=== PATIENT | female | born 1970 | race Two or more races ===

== ENCOUNTER 2024-08-21 17:48 | Emergency (ER) | payer SELFPAY ==
[~2024-08-21] VITALS: Ht 157.5 cm; Wt 64.5 kg
--- NOTE | 2024-08-21 18:18 | ED.PDOC ---
Back pain HPI HPI Comments This is a 53-year-old male patient chief complaint status post fall ground level while at work today around 3:00 p.m.. 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 Patient is complaining of left forearm, left rib cage, left knee, left thigh, and left-sided thoracic back pain. Describes the pain sharp and shooting nonradiating type pain 7/10 on pain scale. Patient states she follow up with occupational health was given a pain shot, unsure on what it was. Patient states she did walk to her car after injury very gingerly with a limping gait. The states did not hit her head denies LOC or neck pain. She denies weakness, numbness, or any other known injury. Time Seen by MD: 18:11 Reviewed Notes: Nurses Notes, Medications, Allergies Allergies: Coded Allergies: Hydrochlorothiazide (Verified Allergy, Unknown, 08/21/24) Home Meds Active Scripts Tizanidine Hydrochloride (Zanaflex) 4 Mg Tab, 1 TAB PO QPM PRN for 4 Days, #4 TAB Prov:COSME ABBOTT [facility] 08/21/24 Ibuprofen Micronized (Ibuprofen) 800 Mg Tab, 800 MG PO TID PRN for 5 Days, #15 TAB Prov:COSME ABBOTT [facility] 08/21/24 Information Source: Patient Past Medical History PAST MEDICAL HISTORY: Denies Surgical History: Denies all surgeries [employer]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 History Family History Family History: Reviewed,noncontributory to illness Social History Smoker: Non-Smoker Alcohol: Denies ETOH Use Drugs: Denies Drug Use Constitutional: denies: chills, diaphoresis, fatigue, fever, malaise, sweats, weakness, others EENTM: denies: blurred vision, double vision, ear bleeding, ear discharge, ear drainage, ear pain, ear ringing, eye pain, eye redness, hearing loss, mouth pain, mouth swelling, nasal discharge, nose bleeding, nose congestion, nose pain, photophobia, tearing, throat pain, throat swelling, voice changes, others Respiratory: reports: others (Left-sided rib cage pain and tenderness); denies: cough, hemoptysis, orthopnea, SOB at rest, shortness of breath, SOB with excertion, stridor, wheezing Cardiovascular: denies: chest pain, dizzy spells, diaphoresis, Dyspnea on exertion, edema, irregular heart beat, left arm pain, lightheadedness, palpitations, PND, syncope, others Gastrointestinal: denies: abdomen distended, abdominal pain, blood streaked bowels, constipated, diarrhea, dysphagia, difficulty swallowing, hematemesis, melena, nausea, poor appetite, poor fluid intake, rectal bleeding, rectal pain, vomiting, others Genitourinary: denies: abnormal vagina bleeding, burning, dyspareunia, dysuria, flank pain, frequency, hematuria, incontinence, pain, , vagina discharge, urgency, others Neurological: denies: dizziness, fainting, headache, left sided numbness, left sided weakness, numbness, paresthesia, pre-existing deficit, right sided numbness, right sided weakness, seizure, speech problems, tingling, tremors, weakness, others Musculoskeletal: reports: back pain (Thoracic back), joint swelling (Left knee), others (Pain left forearm) Physical Exam General Appearance: No Apparent Distress, Normal HEENT: Normal ENT Inspection, Pharynx Normal, TMs Normal Neck: Full Range of Motion, Non-Tender, Normal, Normal Inspection Respiratory: Chest Non-Tender, Lungs Clear, No Accessory Muscle Use, No Respiratory Distress, Normal Breath Sounds Cardiovascular: No Edema, No JVD, No Murmur, No Gallop, Normal Peripheral Pulses, Regular Rate/Rhythm Breast Exam: Deferred Gastrointestinal: No Organomegaly, Non Tender, No Pulsatile Mass, Normal Bowel Sounds, Soft Genitalia: Deferred Pelvic: Deferred Rectal: Deferred Extremities: No calf tenderness, Normal capillary refill, Normal inspection, Normal range of motion, Non-tender, No pedal edema Musculoskeletal : Location: Left Extremity Location: Back (Moderate tenderness and palpation over T1 through T12 left-sided paraspinal muscles with noted spasms without ecchymosis, abrasions, lesions or lacerations. No tenderness noted over T1 through T12 spine without crepitus or step-offs. Strength sensory and motion intact bilateral legs positive bilateral pedal pulses.), Forearm (Moderate tenderness palpated over dorsal aspect of forearm with noted superficial abrasion. Sensory strength and motion intact positive radial pulse.), Knee (Tenderness palpated over patella without ballottement trace edema. No noted abrasions, lacerations or lesions. Negative Tanesha's and drawer test. Strength sensory motion intact positive pedal pulse distal.), Other (Moderate tenderness on palpation with guarding over left-sided ribcage no noted flail chest, ecchymosis, lesions, lacerations or abrasions. No noted crepitus or bony prominence.) Apperance: Normal Neurologic: Alert, bi analyst II-XII nml as Tested, No Motor Deficits, Normal Affect, Normal Mood, No Sensory Deficits Cerebellar Function: Normal Reflexes: Normal Skin: Dry, Normal Color, Warm Lymphatic: No Adenopathy Was a procedure done? Was a procedure done?: No Back Pain Differential Dx Differential Diagnosis: Fracture, Musculoskeletal Pain X-Ray, Labs, Meds, VS Vital Signs Date Time Temp Pulse Resp B/P (MAP) Pulse Ox O2 Delivery O2 Flow Rate FiO2 08/21/24 19:00 99.1 94 16 160/93 (115) 98 99.1 08/21/24 19:00 94 16 98 Room Air 08/21/24 18:00 99.1 94 16 160/93 (115) 98 Current Medications Medications (Trade) Dose Ordered Sig/Naty Route Start Time Stop Time Status Last Admin Acetaminophen/ Hydrocodone Bitart ([place] 5/325MG Tab) 1 tab ONCE ONCE PO 08/21/24 18:30 08/21/24 18:31 DC 08/21/24 19:08 X-Ray, Labs, Meds, VS Comment Imaging: Left-sided ribcage x-ray shows no acute findings or osseous lesions Forearm shows no acute findings or osseous lesions Thoracic back spine shows no acute findings or osseous lesions Left knee shows no acute findings, 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 Patient reports improvement in pain and function requesting discharge at this time. Advised patient to follow up with her appointment with occupational heal on SaturdayAugust 25. We will script Zanaflex muscle relaxer and ibuprofen 800 mg advised no alcohol or driving while on muscle relaxer. Advised patient return to the ER for increasing pain, numbness, weakness, or any focal neuro deficits. Patient agrees with discharge plan of care. Time of 1ST Reevaluation: 19:25 Reevaluation 1ST: Improved Patient Education/Counseling: Diagnosis, Treatment, Prognosis, Need For Follow Up Family Education/Counseling: Diagnosis, Treatment, Prognosis, Need For Follow Up Departure 1 Departure Time of Disposition: 19:24 Impression: Primary Impression: Status post fall Additional Impressions: Contusion of left knee Qualified Codes: S80.02XA - Contusion of left knee, initial encounter Contusion of rib on left side Qualified Codes: S20.212A - Contusion of left front wall of thorax, initial encounter Contusion of left forearm Qualified Codes: S50.12XA - Contusion of left forearm, initial encounter Strain of muscle and tendon of back wall of thorax, initial encounter Disposition: HOME / SELF CARE / HOMELESS Condition: Stable e-Prescriptions Tizanidine Hydrochloride (Zanaflex) 4 Mg Tab 1 TAB PO QPM PRN for 4 Days, #4 TAB Prov: COSME ABBOTT 08/21/24 Ibuprofen Micronized (Ibuprofen) 800 Mg Tab 800 MG PO TID PRN for 5 Days, #15 TAB Prov: COSME ABBOTT 08/21/24 Discharged With: Self Critical Care Note Critical Care Time?: No Stability Stability form required: No COSME ABBOTT Aug 21, 2024 18:18
[2024-08-21 19:00] VITALS: BP 160/93; PULSE 94; RESP 16; TEMP 99.1; O2SAT 98
--- NOTE | 2024-08-21 19:02 | DVH ---
CLINICAL INDICATION: s/p fall pain and swelling TECHNIQUE: 3 radiographic views of the left knee were obtained. Comparison: None FINDINGS/IMPRESSION: Bifid patella versus fracture of the lower pole of the left patella. A lateral view was not obtained.
--- NOTE | 2024-08-21 19:07 | DVH ---
CLINICAL INDICATION: s/p fall pain TECHNIQUE: 5 radiographic views of the left were obtained. Comparison: None FINDINGS/IMPRESSION: There is no evidence of acute fracture or dislocation. There is no pneumothorax or pleural effusions. The visualized joint space is well maintained. The alignment is anatomical. There is no radiopaque foreign body.
[2024-08-21] MEDS: HYDROcodone-ACET 5/325MG TAB PO ONE (19:08)
--- NOTE | 2024-08-21 19:13 | DVH ---
CLINICAL INDICATION: s/p fall pain TECHNIQUE: XY L FOREARM XRAY Comparison: None FINDINGS/IMPRESSION: There is no evidence of acute fracture or dislocation. The visualized joint space is well maintained. The alignment is anatomical. There is no radiopaque foreign body.
--- NOTE | 2024-08-21 19:15 | DVH ---
CLINICAL INDICATION: s/p fall pain TECHNIQUE: 2 radiographic views of the thoracic spine were obtained. Comparison: None FINDINGS/IMPRESSION: There is no evidence of acute fracture or dislocation. The visualized joint space is well maintained. The alignment is anatomical. There is no radiopaque foreign body.
[2024-08-21] MEDS ORDERED: IBUP-1455 PO (19:44)
[2024-08-21] MEDS ORDERED: TIZA4TAB9 PO (19:44)
== END 2024-08-21 19:49 | disposition home or self-care (01) ==
LOC: ER 17:48
DX: S29.012A Strain of muscle and tendon of back wall of thorax, initial encounter (principal); S80.02XA Contusion of left knee, initial encounter; S50.12XA Contusion of left forearm, initial encounter; S20.212A Contusion of left front wall of thorax, initial encounter; Z88.8 Allergy status to other drugs, medicaments and biological substances; Z79.899 Other long term (current) drug therapy; W01.0XXA Fall on same level from slipping, tripping and stumbling without subsequent striking against object, initial encounter; Y93.01 Activity, walking, marching and hiking; Y92.89 Other specified places as the place of occurrence of the external cause; Y99.8 Other external cause status
CPT/HCPCS: 71101; 72070; 73090; 73562